=== PATIENT | female | born 1985 | race Caucasian/White ===

== ENCOUNTER 2017-04-22 10:36 | Emergency (ER) | payer OTHER ==
[2017-04-22] MEDS ORDERED: Ketorolac INJ* 30 MG/ML 1 ML VIAL IV ONE (11:42)
[2017-04-22 12:31] LABS: ABS Basophils 0.2 10^3/ul (0-0.2); ABS Eosinophils 0 10^3/ul (0-0.6); ABS Lymphocytes 2.6 10^3/ul (1.0-4.8); ABS Monocytes 0.5 10^3/ul (0-0.8); ABS Neutrophils 1.9 10^3/ul (1.5-7.7); ABS Nucleated RBC 0 10^3/ul; Eosinophil % 0.4 % (0-6); Hematocrit 41 % (35-47); Hemoglobin 14.1 g/dl (12.0-16.0); Lymphocyte % 50.7 % (25-47); Mean Corpuscular HGB Conc 34 g/dl (31-36); Mean Corpuscular Hemoglobin 32 pg (27-31); Mean Corpuscular Volume 94 fL (80-97); Mean Platelet Volume 8 um3 (7.4-10.4); Nucleated Red Blood Cells % 0.1; Platelet Count 285 10^3/ul (150-450); Red Blood Count 4.37 10^6/ul (4.0-5.4); Red Cell Distribution Width 13 % (10.5-15); White Blood Count 5.2 10^3/ul (3.5-10.8)
[2017-04-22 12:41] LABS: EGFR Non-African American 96.4 (>60)
[2017-04-22 13:17] LABS: Urine Appearance Clear; Urine Blood Negative (Negative); Urine Color Straw; Urine Ketones Negative (Negative); Urine Protein Negative (Negative); Urine Specific Gravity 1.008 (1.010-1.030); Urine Urobilinogen Negative (Negative)
--- NOTE | 2017-04-22 14:57 | RAD ---
INDICATION: Left adnexal pain. COMPARISON: There are no prior studies available for comparison. TECHNIQUE: Multiple real-time transvaginal images of the pelvis were obtained. FINDINGS: The uterus is normal in size, shape and echogenicity. The uterus measured 6.8 x 3.2 x 4.4 cm. The endometrial echo measured 0.5 cm in thickness. There is a T-shaped IUD which appears to be in normal position. The right ovary measured 3.1 x 2.0 x 2.7 cm. The left ovary measured 2.9 x 2.2 x 2.4 cm. There is vascular flow within both ovaries. There are small bilateral follicular cysts present. No free intraperitoneal fluid is seen. IMPRESSION: 1. NO EVIDENCE FOR ACUTE FINDING. 2. THERE IS AN IUD PRESENT WHICH APPEARS TO BE IN NORMAL POSITION.
[2017-04-22 16:05] VITALS: BP 116/67
--- NOTE | 2017-04-22 19:29 | ED ---
Geena Baltazar Edward, scribed for Jack Min MD on 04/22/17 at 1132 . Abdominal Pain/Female - HPI Summary HPI Summary: 32 y/o female presents to the ED c/o severe, constant ABD pain described as a cramping pain mostly in the L lower ABD above the groin. Pain aggravated with movement. Pt did some heavy lifting three days ago. That night the pt c/o mild lower back pain. The next morning the pt c/o lower ABD pain, which has gotten gradually worse over the past several days. Associated sx: diarrhea (loose) today. LNMP 2 weeks ago. Pt has an IUD. PMHx endometriosis. Sx appy, tonsillectomy. - History of Current Complaint Chief Complaint: EDAbdPain Stated Complaint: ABD PAIN Hx Obtained From: Patient Onset/Duration: Lasting Days, Still Present Timing: Constant Severity Currently: Severe Pain Intensity: 8 Pain Scale Used: 0-10 Numeric Location: Discrete At: LLQ, Suprapubic - L side Character: Cramping Aggravating Factor(s): Nothing Alleviating Factor(s): Nothing Associated Signs and Symptoms: Positive: Back Pain - lower back pain, Diarrhea Allergies/Adverse Reactions: Allergies Allergy/AdvReac Type Severity Reaction Status Date / Time No Known Allergies Allergy Verified 04/22/17 10:50 PMH/Surg Hx/FS Hx/Imm Hx Previously Healthy: No History: Reports: Other Problems/Disorders - endometriosis Opthamlomology History: Denies: Hx Legally Blind - Surgical History Surgery Procedure, Year, and Place: APPY, tonsillectomy Infectious Disease History: No Infectious Disease History: Denies: Traveled Outside the [place] in Last 30 Days - Family History Known Family History: Positive: Unknown - Social History Occupation: Student Lives: With Family Review of Systems Constitutional: Negative Eyes: Negative ENT: Negative Cardiovascular: Negative Respiratory: Negative Positive: Abdominal Pain, Diarrhea Genitourinary: Negative Musculoskeletal: Other - lower back pain Skin: Negative Neurological: Negative Psychological: Normal All Other Systems Reviewed And Are Negative: Yes Physical Exam - Summary Physical Exam Summary: Appearance: The patient is well-nourished in no acute distress and in no acute pain. Skin: The skin is warm and dry and skin color reflects adequate perfusion. HEENT: ~The head is normocephalic and atraumatic. The pupils are equal and reactive. The conjunctivae are clear and without drainage. ~Nares are patent and without drainage. Mouth reveals moist mucous membranes and the throat is without erythema and exudate. The external ears are intact. The ear canals are patent and without drainage. The tympanic membranes are intact. Neck: the neck is supple with full range of motion and non-tender. There are no carotid bruits. ~There is no neck vein distension. Respiratory: Chest is non-tender. ~Lungs are clear to auscultation and breath sounds are symmetrical and equal. Cardiovascular: Heart is regular rate and rhythm. ~There is no murmur or rub auscultated. ~~There is no peripheral edema and pulses are symmetrical and equal. Abdomen: The abdomen is soft and tender in the suprapubic area and in the LLQ. ~ There are normal bowel sounds heard in all four quadrants and there is no organomegaly palpated. Musculoskeletal: There is tenderness in the L paralumbar area. ~Extremities are non-tender with full range of motion. ~There is good capillary refill. There is no peripheral edema or calf tenderness elicited. Neurological: Patient is alert and oriented to person, place and time. ~The patient has symmetrical motor strength in all four extremities. ~Cranial nerves are grossly intact. Deep tendon reflexes are symmetrical and equal in all four extremities. Psychiatric: The patient has an appropriate affect and does not exhibit any anxiety or depression. Triage Information Reviewed: Yes Vital Signs On Initial Exam: Initial Vitals Temp Pulse Resp BP Pulse Ox 98.3 F 75 18 120/78 100 04/22/17 10:38 04/22/17 10:38 04/22/17 10:38 04/22/17 10:38 04/22/17 10:38 Vital Signs Reviewed: Yes Diagnostics - Vital Signs Vital Signs Temp Pulse Resp BP Pulse Ox 04/22/17 10:38 98.3 F 75 18 120/78 100 - Laboratory Lab Results: Lab Results 04/22/17 04/22/17 04/22/17 Range/Units 12:10 12:10 12:10 WBC 5.2 (3.5-10.8) 10^3/ul RBC 4.37 (4.0-5.4) 10^6/ul Hgb 14.1 (12.0-16.0) g/dl Hct 41 (35-47) % MCV 94 (80-97) fL MCH 32 H (27-31) pg MCHC 34 (31-36) g/dl RDW 13 (10.5-15) % Plt Count 285 (150-450) 10^3/ul MPV 8 (7.4-10.4) um3 Neut % (Auto) 37.1 L (38-83) % Lymph % (Auto) 50.7 H (25-47) % [place] % (Auto) 8.6 H (0-7) % Eos % (Auto) 0.4 (0-6) % Baso % (Auto) 3.2 H (0-2) % Absolute Neuts (auto) 1.9 (1.5-7.7) 10^3/ul Absolute Lymphs (auto) 2.6 (1.0-4.8) 10^3/ul Absolute Monos (auto) 0.5 (0-0.8) 10^3/ul Absolute Eos (auto) 0 (0-0.6) 10^3/ul Absolute Basos (auto) 0.2 (0-0.2) 10^3/ul Absolute Nucleated RBC 0 10^3/ul Nucleated RBC % 0.1 Sodium 136 (133-145) mmol/L Potassium 3.7 (3.5-5.0) mmol/L Chloride 103 (101-111) mmol/L Carbon Dioxide 25 (22-32) mmol/L Anion Gap 8 (2-11) mmol/L BUN 15 (6-24) mg/dL Creatinine 0.70 (0.51-0.95) mg/dL Est GFR ( Amer) 123.9 (>60) Est GFR (Non-Af Amer) 96.4 (>60) BUN/Creatinine Ratio 21.4 H (8-20) Glucose 92 (70-100) mg/dL Lactic Acid 0.7 (0.5-2.0) mmol/L Calcium 9.5 (8.6-10.3) mg/dL Total Bilirubin 0.60 (0.2-1.0) mg/dL AST 18 (13-39) U/L ALT 13 (7-52) U/L Alkaline Phosphatase 34 (34-104) U/L C-Reactive Protein < 1.00 (< 5.00) mg/L Total Protein 7.1 (6.4-8.9) g/dL Albumin 4.5 (3.2-5.2) g/dL Globulin 2.6 (2-4) g/dL Albumin/Globulin Ratio 1.7 (1-3) Beta HCG, Quant < 0.60 mIU/mL Urine Color Urine Appearance Urine pH (5-9) Ur Specific [place] (1.010-1.030) Urine Protein (Negative) Urine Ketones (Negative) Urine Blood (Negative) Urine Nitrate (Negative) Urine Bilirubin (Negative) Urine Urobilinogen (Negative) Ur Leukocyte Esterase (Negative) Urine WBC (Auto) (Absent) Urine RBC (Auto) (Absent) Ur Squamous Epith Cells (Absent) Urine Bacteria (Absent) Urine Glucose (Negative) 04/22/17 Range/Units 13:00 WBC (3.5-10.8) 10^3/ul RBC (4.0-5.4) 10^6/ul Hgb (12.0-16.0) g/dl Hct (35-47) % MCV (80-97) fL MCH (27-31) pg MCHC (31-36) g/dl RDW (10.5-15) % Plt Count (150-450) 10^3/ul MPV (7.4-10.4) um3 Neut % (Auto) (38-83) % Lymph % (Auto) (25-47) % [place] % (Auto) (0-7) % Eos % (Auto) (0-6) % Baso % (Auto) (0-2) % Absolute Neuts (auto) (1.5-7.7) 10^3/ul Absolute Lymphs (auto) (1.0-4.8) 10^3/ul Absolute Monos (auto) (0-0.8) 10^3/ul Absolute Eos (auto) (0-0.6) 10^3/ul Absolute Basos (auto) (0-0.2) 10^3/ul Absolute Nucleated RBC 10^3/ul Nucleated RBC % Sodium (133-145) mmol/L Potassium (3.5-5.0) mmol/L Chloride (101-111) mmol/L Carbon Dioxide (22-32) mmol/L Anion Gap (2-11) mmol/L BUN (6-24) mg/dL Creatinine (0.51-0.95) mg/dL Est GFR ( Amer) (>60) Est GFR (Non-Af Amer) (>60) BUN/Creatinine Ratio (8-20) Glucose (70-100) mg/dL Lactic Acid (0.5-2.0) mmol/L Calcium (8.6-10.3) mg/dL Total Bilirubin (0.2-1.0) mg/dL AST (13-39) U/L ALT (7-52) U/L Alkaline Phosphatase (34-104) U/L C-Reactive Protein (< 5.00) mg/L Total Protein (6.4-8.9) g/dL Albumin (3.2-5.2) g/dL Globulin (2-4) g/dL Albumin/Globulin Ratio (1-3) Beta HCG, Quant mIU/mL Urine Color Straw Urine Appearance Clear Urine pH 7.0 (5-9) Ur Specific [place] 1.008 L (1.010-1.030) Urine Protein Negative (Negative) Urine Ketones Negative (Negative) Urine Blood Negative (Negative) Urine Nitrate Negative (Negative) Urine Bilirubin Negative (Negative) Urine Urobilinogen Negative (Negative) Ur Leukocyte Esterase Negative (Negative) Urine WBC (Auto) Absent (Absent) Urine RBC (Auto) Trace(0-2/hpf) (Absent) Ur Squamous Epith Cells Present A (Absent) Urine Bacteria Absent (Absent) Urine Glucose Negative (Negative) Result Diagrams: 04/22/17 12:10 04/22/17 12:10 Lab Statement: Any lab studies that have been ordered have been reviewed, and results considered in the medical decision making process. - Ultrasound No standard instances Ultrasound Interpretation: No Acute Changes - TRANSVAGINAL US - 1. NO EVIDENCE FOR ACUTE FINDING. 2. THERE IS AN IUD PRESENT WHICH APPEARS TO BE IN NORMAL POSITION. Ultrasound Interpretation Completed By: Radiologist - ED PHYSICIAN REVIEWS AND AGREES Re-Evaluation - Re-Evaluation 1 Re-Evaluation Time: 12:40 Change: Improved - but pain still present Abdominal Pain Fem Course/Dx - Course Course Of Treatment: Ms. Abreu presented with the gradual onset of low back pain and left low abdominal pain over the course of three days starting Sat. AM. She did lift a Ewe on Saturday and strained her back a little. She has pain with movement and no incontinence or weakness. She was tender in her left lower para lumbar area and also in the left inguinal area. I could not appreciate a hernia. She improved some with ketorolac. U/S of the pelvis was negative and labs were WNL. I think this is likely radicular and musculoskeletal. We discussed CT scan and she chose to wait at this time. - Diagnoses Provider Diagnoses: Abdominal pain, Low back strain Discharge - Discharge Plan Condition: Stable Disposition: HOME Prescriptions: HYDROcodone/ACETAMIN 5-325 MG* [[place] 5-325 TAB*] 1 tab PO Q6H PRN #20 tab MDD 4 PRN Reason: Pain Patient Education Materials: Low Back Strain (ED), Abdominal Pain (ED) Referrals: [facility] [Primary Care Provider] - 4 Days (PLEASE F/U IN 3-5 DAYS) Additional Instructions: RECOMMEND IBUPROFEN FOR PAIN RETURN FOR WORSENING SYMPTOMS The documentation as recorded by the Geena flood Edward accurately reflects the service I personally performed and the decisions made by me, Jack Min MD.
== END 2017-04-22 16:04 | disposition home or self-care (01) ==
LOC: ED 10:36
DX: S39.012A Strain of muscle, fascia and tendon of lower back, initial encounter (principal); R19.7 Diarrhea, unspecified; R10.9 Unspecified abdominal pain; X58.XXXA Exposure to other specified factors, initial encounter; Y92.9 Unspecified place or not applicable
CPT/HCPCS: 36415; 76830; 80053; 81003; 83605; 84702; 85025; 86140; 99282; J1885